=== PATIENT | female | born 2005 | race Caucasian/White ===

== ENCOUNTER 2024-02-02 07:35 | Emergency (ER) | payer SELFPAY ==
[~2024-02-02] VITALS: Ht 165.1 cm; Wt 67.1 kg
[2024-02-02 07:37] VITALS: BP 128/80; PULSE 103; RESP 18; TEMP 97.8; O2SAT 99
[2024-02-02 07:54] VITALS: BP 121/84; PULSE 100; RESP 18; TEMP 97.8; O2SAT 99
== END 2024-02-02 07:55 ==
LOC: MED 07:35
DX: S80.211A Abrasion, right knee, initial encounter (principal); S20.319A Abrasion of unspecified front wall of thorax, initial encounter; S10.91XA Abrasion of unspecified part of neck, initial encounter; V89.2XXA Person injured in unspecified motor-vehicle accident, traffic, initial encounter; Y93.89 Activity, other specified; Y92.410 Unspecified street and highway as the place of occurrence of the external cause; Y99.8 Other external cause status
CPT/HCPCS: 99283